=== PATIENT | female | born 1990 | race Two or more races ===

== ENCOUNTER 2017-11-27 08:28 | Emergency (ER) | payer MEDICAID ==
[~2017-11-27] VITALS: Ht 157.5 cm; Wt 74.8 kg
[2017-11-27 08:35] VITALS: BP 125/80
== END 2017-11-27 09:48 | disposition home or self-care (01) ==
LOC: ER 08:28
DX: S93.402A Sprain of unspecified ligament of left ankle, initial encounter (principal); X50.1XXA Overexertion from prolonged static or awkward postures, initial encounter; Y93.89 Activity, other specified; Y92.89 Other specified places as the place of occurrence of the external cause; Y99.8 Other external cause status
CPT/HCPCS: 29515; 73610